=== PATIENT | female | born 1965 | race Two or more races ===

== ENCOUNTER 2022-07-25 02:00 | Emergency (ER) | payer OTHER ==
[~2022-07-25] VITALS: Ht 170.2 cm; Wt 99.8 kg
[~2022-07-25 02:00] MED LIST: COZAAR50 MG PO
[2022-07-25] MEDS ORDERED: METFORMIN HCL500 M4 PO (02:22)
== END 2022-07-25 06:15 | disposition home or self-care (01) ==
LOC: ER 02:00
DX: N20.0 Calculus of kidney (principal)